=== PATIENT | female | born 1995 | race Two or more races ===

== ENCOUNTER 2017-09-30 23:30 | Emergency (ER) | payer OTHER ==
[~2017-09-30] VITALS: Ht 157.5 cm; Wt 59.2 kg
[2017-09-30 23:51] VITALS: BP 119/74
== END 2017-09-30 23:53 | disposition home or self-care (01) ==
LOC: ED 23:49
DX: H10.023 Other mucopurulent conjunctivitis, bilateral (principal); J00 Acute nasopharyngitis [common cold]
CPT/HCPCS: 99283